=== PATIENT | female | born 1980 | race Caucasian/White ===

== ENCOUNTER 2017-03-22 11:14 | Emergency (ER) | payer OTHER ==
[2017-03-22 11:16] VITALS: BMI 23.4
--- NOTE | 2017-03-22 11:26 | ED PDOC ---
Arrival/HPI - General Time Seen by Provider: 03/22/17 11:16 Historian: Patient - History of Present Illness Narrative History of Present Illness (Text): 03/22/17 11:23 Patient is a 36 yo female presents with sudden onset of lower diffuse abdominal pain at approximately 830 am associated with "heavy" vaginal bleeding "constant ". Pain is not radiating. No associated fever or nausea. Patient with no vomiting or diarrhea. Pain does not radiate to back. Denies palpitations. Denies lightheadedness or dizziness. Past Medical History - Past Medical History Past Medical History: No Previous - Past Surgical History Past Surgical History: No Previous - Suicidal Assessment Feels Threatened In Home Enviroment: No Family/Social History Family/Social History: Unknown Family HX Smoking Status: Never Smoked Hx Alcohol Use: No Hx Substance Use Treatment: No Allergies/Home Meds Allergies/Adverse Reactions: Allergies No Known Allergies Allergy (Verified 09/06/14 19:43) Review of Systems - Review of Systems Constitutional: absent: Fevers Respiratory: absent: SOB Cardiovascular: absent: Chest Pain Gastrointestinal: Abdominal Pain. absent: Constipation, Diarrhea, Nausea, Vomiting, Appetite Changes, Hematochezia, Hematemesis Genitourinary Female: Vaginal Bleeding. absent: Dysuria, Frequency, Urine Output Changes, Vaginal Discharge Musculoskeletal: absent: Back Pain Skin: absent: Rash Neurological: absent: Headache, Dizziness, Focal Weakness Endocrine: absent: Polyuria Hemo/Lymphatic: absent: Easy Bleeding Psychiatric: absent: Depression Physical Exam Vital Signs Reviewed: Yes Vital Signs Temp Pulse Resp BP Pulse Ox 03/22/17 15:08 98.6 F 72 18 123/64 99 03/22/17 13:28 73 18 118/69 100 03/22/17 11:18 98.8 F 59 L 20 115/69 99 Temperature: Afebrile Appearance: Positive for: Uncomfortable Pain Distress: Mild - Systems Exam Head: Present: Atraumatic Pupils: Present: PERRL Mouth: Present: Moist Mucous Membranes Pharnyx: No: ERYTHEMA Neck: Present: Normal Range of Motion. No: Meningeal Signs Respiratory/Chest: Present: Clear to Auscultation Cardiovascular: Present: Regular Rate and Rhythm Abdomen: Present: Tenderness (diffuse mid lower abdominal pain, no rebound or guarding, no pulsatile masses, NO focal RLQ pain or lateral pain) Rectal: No: Gross Blood Genitourinary/Pelvic Exam: Present: Vaginal Bleeding, Other (electrical and radio mechanic present) Lower Extremity: No: Edema Neurological: Present: Motor Func Grossly Intact, Normal Sensory Function Skin: Present: Warm Psychiatric: Present: Alert Medical Decision Making ED Course and Treatment: 03/22/17 11:39 Patient evaluated with nurse electrical and radio mechanic. Patient on exam with stable vital signs , is actively bleeding, states she "isn't sure" if she is although initial POC urine test is NEGATIVE. No fever. No upper abdominal pain. Ddx ovarian cyst, ovarian torsion, UTI, uterine fibroid, dysfunctional uterine bleeding, appendicitis, gastroenteritis, gastritis. Plan to administer iv toradol and monitor patient, check labs, obtain ultrasound. 03/22/17 12:03 Pain improved but persistent after Toradol. CBC and chemistry unremarkable currently. Ultrasound pending. 03/22/17 14:46 Patient observed in ED. On re-exam, no active bleeding. Not hypotensive. Ultrasound unremarkable. NO PAIN ON RE-EXAM. Betahcg negative. Patient with NO PAIN on re-evaluation. Patient denies ANY urinary symptoms, denies hematuria, denies dysuria or frequency. No cva tenderness. Will discharge with patient advised to follow-up with photograph mounter. 03/22/17 14:56 03/22/17 15:01 Transvaginal Ultrasound Menswear Salesperson : Chris Mejias MD Report Date : 03/22/2017 14:27:36 HISTORY:severe lower abdominal pain, ? ovarian pathology COMPARISON:None available. TECHNIQUE:Transvaginal FINDINGS: UTERUS: Measures 7.7 x 3.8 x 4.2 cm. Normal in size and appearance. No fibroid or other mass lesion seen. ENDOMETRIUM:Measures 13 mm in diameter. There is echogenic material within the endometrial canal consistent with the history of menstruating presently. CERVIX:No cervical abnormality identified. RIGHT OVARY:Measures 1.3 by 0.8 x 1.13 cm. No solid mass. Normal flow. LEFT OVARY:Measures 2.4 x 1.9 x 2.46 cm. No solid mass. Normal flow. FREE FLUID:No significant free fluid noted. OTHER FINDINGS:None. IMPRESSION: Unremarkable pelvic ultrasound. - Lab Interpretations Lab Results: 03/22/17 11:39 03/22/17 11:39 Lab Results 03/22/17 11:39: Urine HCG, Qual Negative 03/22/17 11:39: Beta HCG, Quant < 2.39 03/22/17 11:39: Sodium 139, Potassium 3.6, Chloride 109 H, Carbon Dioxide 21, Anion Gap 14, BUN 10, Creatinine 0.6 L, Est GFR ( Amer) > 60, Est GFR ( Non-Af Amer) > 60, Random Glucose 104, Calcium 8.8, Total Bilirubin 0.6, AST 25 , ALT 31, Alkaline Phosphatase 79, Total Protein 7.3, Albumin 4.2, Globulin 3.1 , Albumin/Globulin Ratio 1.4 03/22/17 11:39: Urine Color Yellow, Urine Appearance Cloudy, Urine pH 7.0, Ur Specific [place] 1.020, Urine Protein 30 H, Urine Glucose (UA) Negative, Urine Ketones 15 H, Urine Blood Large H, Urine Nitrate Negative, Urine Bilirubin Negative, Urine Urobilinogen 0.2, Ur Leukocyte Esterase Negative, Urine RBC Tntc , Urine WBC 0 - 2, Ur Epithelial Cells 6 - 8, Urine Bacteria Mod 03/22/17 11:39: PT 13.3 H, INR 1.20 H, APTT 27.3 03/22/17 11:39: WBC 9.1, RBC 4.37, Hgb 14.2, Hct 41.7, MCV 95.4, MCH 32.5, MCHC 34.1, RDW 12.4, Plt Count 277, MPV 9.2, Gran % 81.7 H, Lymph % (Auto) 12.1 L, [place] % (Auto) 5.4, Eos % (Auto) 0.7 L, Baso % (Auto) 0.1, Gran # 7.40 H, Lymph # 1.1 L, [place] # 0.5, Eos # 0.1, Baso # 0.01 - RAD Interpretation Radiology Orders: 03/22/17 11:27 TRANSVAGINAL [US] Stat - Medication Orders Current Medication Orders: Discontinued Medications Sodium Chloride (Sodium Chloride 0.9%) 1,000 mls @ 100 mls/hr IV .Q10H GIGI Last Admin: 03/22/17 11:37 Dose: 100 mls/hr eMAR Start Stop Document 03/22/17 11:37 TA (Rec: 03/22/17 11:37 TA [id number]) Intravenous Solution Start Date 03/22/17 Start Time 11:37 Ketorolac Tromethamine (Toradol) 30 mg IVP ONCE ONE Stop: 03/22/17 11:29 Last Admin: 03/22/17 11:38 Dose: 30 mg MAR Pain Assessment Document 03/22/17 11:38 TA (Rec: 03/22/17 11:39 TA [id number]) Pain Reassessment Is this a pain reassessment? No Sleep Is patient sleeping during reassessment? No Presence of Pain Presence of Pain Yes Pain Scale Used Pain Scale Used Numeric Location Left, Right or Bilateral Bilateral Pain Location Body Site Abdomen Description Description Sharp Pain Behavior Moaning Aggravating Factors ADL's IVP Administration Document 03/22/17 11:38 TA (Rec: 03/22/17 11:39 TA [id number]) Charges for Administration # of IVP Administrations 1 - Scribe Statement The provider has reviewed the documentation as recorded by the Larry Grimes Provider Scribe Attestation: All medical record entries made by the Scribsandor were at my direction and personally dictated by me. I have reviewed the chart and agree that the record accurately reflects my personal performance of the history, physical exam, medical decision making, and the department course for this patient. I have also personally directed, reviewed, and agree with the discharge instructions and disposition. Disposition/Present on Arrival - Present on Arrival Any Indicators Present on Arrival: No History of DVT/PE: No History of Uncontrolled Diabetes: No Urinary Catheter: No History Surgical Site Infection Following: None - Disposition Have Diagnosis and Disposition been Completed?: Yes Diagnosis: Abdominal pain Disposition: HOME/ ROUTINE Disposition Time: 14:48 Patient Plan: Discharge Condition: GOOD Discharge Instructions (ExitCare): Dysfunctional Uterine Bleeding (ED), Abdominal Pain (ED) Additional Instructions: Follow-up with your vending machine coin collector in 1-2 days. For any return of pain, any persistent or worsening of any symptoms, any persistent or heavier vaginal bleeding, any return of any pain, any fevers, return to the Emergency Room immediately. For any urinary symptoms or back pain or bloody urine or burning with urination , get rechecked. Prescriptions: Naproxen 250 mg PO BID PRN #10 tablet PRN Reason: Pain, Mild (1-3) Referrals: [facility] [place]] - Follow up with primary [facility] [Outside] - Follow up with primary Forms: [employer] ([place])
[2017-03-22] MEDS ORDERED: Sodium Chloride 0.9% 1,000 ML IV SCH (11:30)
[2017-03-22 11:46] LABS: BASO # 0.01 K/mm3 (0.0-2.0); BASO % 0.1 % (0.0-3.0); EOS # 0.1 (0.0-0.7); EOS % 0.7 % (1.5-5.0); GRAN # 7.4 (1.4-6.5); GRAN % 81.7 % (50.0-68.0); HEMATOCRIT 41.7 % (36.0-48.0); LYMPH # 1.1 (1.2-3.4); LYMPH % 12.1 % (22.0-35.0); MEAN CELL VOLUME 95.4 fl (80.0-105.0); MEAN CORPUSCULAR HEMOGLOBIN 32.5 pg (25.0-35.0); MEAN CORPUSCULAR HGB CONC 34.1 g/dl (31.0-37.0); MEAN PLATELET VOLUME 9.2 fl (7.0-11.0); MONO # 0.5 (0.1-0.6); MONO % 5.4 % (1.0-6.0); RED CELL DISTRIBUTION WIDTH 12.4 % (11.5-14.5); WHITE BLOOD COUNT 9.1 10^3/ul (4.5-11.0)
[2017-03-22 11:48] LABS: URINE APPEARANCE CLOUDY (CLEAR); URINE BILIRUBIN NEGATIVE (NEGATIVE); URINE BLOOD LARGE (NEGATIVE); URINE COLOR YELLOW (YELLOW); URINE GLUCOSE (UA) NEGATIVE (NEGATIVE); URINE KETONE 15 mg/dL (NEGATIVE); URINE LEUKOCYTE ESTERASE NEGATIVE Leu/uL (NEGATIVE); URINE PROTEIN 30 mg/dL (<30 mg/dL); URINE UROBILINOGEN 0.2 E.U./dL (<1 E.U./dL)
[2017-03-22 11:54] LABS: ALB/GLOB RATIO 1.4 (1.1-1.8); ALKALINE PHOSPHATASE 79 U/L (38-126); ALT/SGPT 31 U/L (7-56); AST/SGOT 25 U/L (14-36); BILIRUBIN,TOTAL 0.6 mg/dL (0.2-1.3); BLOOD UREA NITROGEN 10 mg/dL (7-21); CALCIUM 8.8 mg/dL (8.4-10.5); CARBON DIOXIDE 21 mmol/L (21-33); CHLORIDE 109 mmol/L (98-107); GFR AFRICAN-AMERICAN > 60; GLUCOSE,RANDOM 104 mg/dL (70-110); POTASSIUM 3.6 mmol/L (3.6-5.0); SODIUM 139 mmol/L (132-148); TOTAL PROTEIN 7.3 g/dL (5.8-8.3)
[2017-03-22 11:57] LABS: URINE RBC TNTC /hpf (0-2); URINE WBC 0 - 2 /hpf (0-6)
[2017-03-22 11:58] LABS: URINE BACTERIA MOD (NEG)
[2017-03-22 12:00] LABS: INR 1.2 (0.93-1.08); PARTIAL THROMBOPLASTIN TIME 27.3 Seconds (25.1-36.5)
[2017-03-22 13:28] VITALS: RESP 18
--- NOTE | 2017-03-22 14:29 | US ---
HISTORY: severe lower abdominal pain, ? ovarian pathology COMPARISON: None available. TECHNIQUE: Transvaginal FINDINGS: UTERUS: Measures 7.7 x 3.8 x 4.2 cm. Normal in size and appearance. No fibroid or other mass lesion seen. ENDOMETRIUM: Measures 13 mm in diameter. There is echogenic material within the endometrial canal consistent with the history of menstruating presently. CERVIX: No cervical abnormality identified. RIGHT OVARY: Measures 1.3 by 0.8 x 1.13 cm. No solid mass. Normal flow. LEFT OVARY: Measures 2.4 x 1.9 x 2.46 cm. No solid mass. Normal flow. FREE FLUID: No significant free fluid noted. OTHER FINDINGS: None. IMPRESSION: Unremarkable pelvic ultrasound.
[2017-03-22 15:09] VITALS: BP 123/64; PULSE 72; TEMP 98.6; O2SAT 99
== END 2017-03-22 15:09 | disposition home or self-care (01) ==
LOC: ED 11:14
DX: R10.9 Unspecified abdominal pain (principal)
CPT/HCPCS: 76830; 80053; 81001; 84702; 84703; 85025; 85610; 85730; 96374; 99284; J1885; J7040